=== PATIENT | female | born 1980 | race Caucasian/White ===

== ENCOUNTER 2016-12-10 18:10 | Emergency (ER) | payer OTHER ==
[2016-12-10] MEDS ORDERED: SODIUM CHLORIDE 0.9% 1,000 ML IV ONE ×2 (20:35→20:37)
[2016-12-10] MEDS ORDERED: ONDANSETRON 4 MG/2 ML VIAL IVP STA (20:36)
[2016-12-10] MEDS ORDERED: FAMOTIDINE 20 MG/50 ML 50 ML IV ONE ×2 (20:36→21:08)
[2016-12-10] MEDS ORDERED: ACETAMINOPHEN 1,000 MG/100 ML 100 ML IV STA (20:36)
[2016-12-10] MEDS ORDERED: DIPHENOX/ATROPINE 2.5/0.025 MG TABLET PO STA (20:36)
[2016-12-10] MEDS ORDERED: ONDANSETRON 4 MG/2 ML VIAL ONE (21:07)
[2016-12-10] MEDS ORDERED: DIPHENOX/ATROPINE 2.5/0.025 MG TABLET PO ONE (21:07)
[2016-12-10] MEDS ORDERED: ACETAMINOPHEN 1,000 MG/100 ML 100 ML IV ONE (21:07)
[2016-12-10] MEDS ORDERED: METOCLOPRAMIDE 10 MG/2 ML VIAL IVP STA (22:02)
[2016-12-10] MEDS ORDERED: METOCLOPRAMIDE 10 MG/2 ML VIAL IVP ONE (22:08)
[2016-12-10] MEDS ORDERED: ONDANSETRON ODT 4 MG Prepack 2 TL PRN (22:46)
[2016-12-10] MEDS ORDERED: ONDANSETRON ODT 4 MG Prepack 2 TL ONE (23:06)
== END 2016-12-10 23:13 | disposition home or self-care (01) ==
DX: E86.0 Dehydration (principal); R11.2 Nausea with vomiting, unspecified; R19.7 Diarrhea, unspecified; R10.11 Right upper quadrant pain; R10.12 Left upper quadrant pain; F17.200 Nicotine dependence, unspecified, uncomplicated
CPT/HCPCS: 36415; 76705; 80053; 81001; 81025; 83690; 85025; 87086; 96374; 96375; 99284; A9270; J0131

== ENCOUNTER 2017-01-03 02:28 | Emergency (ER) | payer OTHER ==
[2017-01-03] MEDS ORDERED: LIDOCAINE VISCOUS 2% 15 ML UDC MM STA (02:39)
[2017-01-03] MEDS ORDERED: DICYCLOMINE 10 MG CAPSULE PO STA (02:39)
[2017-01-03] MEDS ORDERED: MAG HYDROX/AL HYDROX/SIMETH 30 ML UDC PO STA (02:39)
[2017-01-03] MEDS ORDERED: ONDANSETRON ODT 4 MG TABLET TL STA (02:39)
[2017-01-03] MEDS ORDERED: MAG HYDROX/AL HYDROX/SIMETH 30 ML UDC ONE (02:43)
[2017-01-03] MEDS ORDERED: DICYCLOMINE 10 MG CAPSULE PO ONE (02:43)
[2017-01-03] MEDS ORDERED: LIDOCAINE VISCOUS 2% 15 ML UDC MM ONE (02:43)
[2017-01-03] MEDS ORDERED: ONDANSETRON ODT 4 MG TABLET ONE (02:43)
== END 2017-01-03 03:50 | disposition home or self-care (01) ==
DX: K29.70 Gastritis, unspecified, without bleeding (principal); E66.9 Obesity, unspecified; Z68.41 Body mass index [BMI] 40.0-44.9, adult; F32.9 Major depressive disorder, single episode, unspecified; Z79.899 Other long term (current) drug therapy; F17.200 Nicotine dependence, unspecified, uncomplicated
CPT/HCPCS: 36415; 71020; 80053; 81001; 81025; 83690; 84484; 85025; 99283; A9270; Q0162

== ENCOUNTER 2017-08-05 13:56 | Emergency (ER) | payer OTHER | END 2017-08-05 15:21 | disposition left against medical advice (07) | LOC: ED 13:56 | DX: Z53.21 Procedure and treatment not carried out due to patient leaving prior to being seen by health care provider (principal) ==